=== PATIENT | female | born 1965 | race Two or more races ===

== ENCOUNTER 2024-12-14 22:25 | Emergency (ER) | payer MEDICAID, SELFPAY ==
[2024-12-14 22:27] VITALS: BMI 31.2
[2024-12-14 22:30] VITALS: BP 134/66; PULSE 63; RESP 18; TEMP 36.6; O2SAT 98
--- NOTE | 2024-12-14 22:30 | EKG_ITS ---
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
--- NOTE | 2024-12-14 23:19 | XR_ITS ---
Examination: PA chest single view TECHNIQUE: Upright PA chest single view Standing time: December 14, 2024, 11:30 PM Comparison September 30, 2023 INDICATIONS: Chest pain today. FINDINGS: Normal heart size. Stable position cardiac leads. No interval pneumonia or pulmonary edema. Moderate osteopenia IMPRESSION: No interval pneumonia or pulmonary edema
--- NOTE | 2024-12-14 23:20 | EDRME_ITS ---
Rapid Medical Screening Exam [facility] Arrival date/time: 12/14/24 22:25 59F with history of cardiomyopathy, CHF, CAD s/p pacemaker/stent, hypothyroidism, and HTN presents to ED with several days of CP/epigastric pain, a heaviness, and not feeling well. Chief Complaint: Chest Pain Vital signs: Vital Signs Temperature 97.8 F 12/14/24 22:30 Pulse Rate 63 12/14/24 22:30 Respiratory Rate 18 12/14/24 22:30 Blood Pressure 134/66 H 12/14/24 22:30 Pulse Oximetry (%) 98 12/14/24 22:30 Oxygen Delivery Method Room Air 12/14/24 22:30
[2024-12-14 23:46] LABS: Collection Type, Urine Clean Catch
[2024-12-14 23:49] LABS: Basophils # (Auto) 0.1 Thou/mm3 (0.0-0.2); Basophils % (Auto) 1 % (0-2.5); Eosinophils # (Auto) 0.2 Thou/mm3 (0.0-0.5); Eosinophils % (Auto) 2 % (0-10); Hematocrit 37.6 % (36.0-46.0); Hemoglobin 12.9 g/dL (12.0-16.0); Immature Granulocytes % (Auto) 1 % (0-0); Immature Granulocytes Auto 0.04 Thou/mm3 (0.00-0.00); Lymphocytes # (Auto) 1.6 Thou/mm3 (1.0-4.8); Lymphocytes % (Auto) 21 % (10-50); Mean Corpuscular HGB Conc 34.3 g/dl (31.0-37.0); Mean Corpuscular Hemoglobin 30.8 pg (25.0-35.0); Mean Corpuscular Volume 90 fL (80-100); Monocytes # (Auto) 0.6 Thou/mm3 (0.0-0.8); Monocytes % (Auto) 7 % (0-12); Neutrophils # (Auto) 5.5 Thou/mm3 (1.8-7.7); Neutrophils % (Auto) 69 % (37-80); Nucleated Red Blood Cell % 0 /100 WBC (0); Platelet Count 279 Thou/mm3 (140-440); RDW Standard Deviation 43.9 fL (36.4-46.3); Red Blood Count 4.19 Miln/mm3 (4.00-5.20)
[2024-12-15 00:11] LABS: Alanine Aminotransferase 40 U/L (10-49); Albumin, Serum 4.3 gm/dL (3.4-4.8); Albumin/Globulin Ratio 1.5 (1.2-2.2); Alkaline Phosphatase 161 U/L (46-116); Anion Gap 12 (7-16); Aspartate Amino Transferase 27 U/L (0-34); BUN/Creatinine Ratio 13 Ratio (12-20); Bilirubin,Total 0.5 mg/dL (0.3-1.2); Blood Urea Nitrogen 20 mg/dL (9-23); Calcium 9.1 mg/dL (8.3-10.6); Calcium (Corrected) 9.1 mg/dL (8.5-10.1); Carbon Dioxide 25.4 mMol/L (20.0-31.0); Chloride 105 mMol/L (98-107); Creatinine (Component) 1.6 mg/dL (0.6-1.3); Estimated Creatinine Clearance 32.8 mL/min (>60); Globulin 2.8 gm/dL (2.3-3.5); Glucose 105 mg/dL (74-106); Lipase 31 U/L (12-53); Magnesium 2.1 mg/dL (1.6-2.6); Osmolality,Calculated 285 (275-295); Sodium 142 mMol/L (136-145); Total Protein 7.1 gm/dL (5.7-8.2); Troponin I < 0.020 ng/mL (0.0-0.045); eGFR 36 See Note
[2024-12-15 00:15] LABS: B-Type Natriuretic Peptide 59 pg/mL (0-100)
[2024-12-15 00:16] LABS: Bacteria,Urine 3+; Bilirubin,Urine Negative (Negative); Blood,Urine Negative (Negative); Clarity,Urine Clear (Clear/Hazy); Color,Urine Lt-Yellow (Lt Yel-Yel); Glucose, Urine Negative (Negative); Hyaline Casts,Urine < 1 /hpf (0-1); Ketones,Urine Negative (Negative); Leukocyte Esterase,Urine Positive (Negative); Nitrite,Urine Negative (Negative); Protein,Urine Negative (Neg - Trace); RBC,Urine 2 /hpf (0-3); Squamous Epithelial Cell,Urine 3 /hpf (0-5); WBC,Urine 2 /hpf (0-5)
[2024-12-15 00:51] VITALS: BP 117/78; PULSE 70; RESP 17; TEMP 36.4; O2SAT 96
--- NOTE | 2024-12-15 01:01 | PD.EDCHEST ---
ED Chest Pain RME/HPI General Chief Complaint: Chest Pain Stated Complaint: DISCOMFORT IN MY CHEST, NAUSEA, PACEMAKER/ICD Arrival date/time: 12/14/24 22:25 RME / HPI RME / HPI narrative: 12/14/24 22:25 59F with history of cardiomyopathy, CHF, CAD s/p pacemaker/stent, hypothyroidism, and HTN presents to ED with several days of CP/epigastric pain, a heaviness, and not feeling well. DR. RIZVI MAIN ED EVALUATION: 59 y/o female with Hx of CAD, CHF, ischemic cardiomyopathy, Cardiac Arrhythmia, Hypercholesterolemia, Hypertension and SHx of Coronary Stent presents to ED c/o chest pressure, dry mouth, nausea, dizziness, intermittent diarrhea, abdominal cramping, and chills s/p taking Wegovy. Patient denies fever, cough, or any other associated symptoms or aggravating factors. No modifying factors, no radiation, no migration. Related Data Home Medications ?Medication ?Instructions ?Recorded ?Confirmed aspirin 81 mg tablet,delayed 81 mg PO QDAY 07/14/19 07/12/22 release (Abigail Low Dose Aspirin) fluticasone propionate 50 1 spray intranasal QDAY 07/14/19 07/12/22 mcg/actuation nasal spray,suspension (Flonase Allergy Relief) furosemide 40 mg tablet 40 mg PO QDAY 07/14/19 07/12/22 loratadine 10 mg tablet 10 mg PO QDAY 07/14/19 07/12/22 pantoprazole 20 mg tablet,delayed 20 mg PO QDAY 07/14/19 07/12/22 release potassium chloride 10 mEq 10 meq PO QDAY 07/14/19 07/12/22 tablet,extended release atorvastatin 40 mg tablet 80 mg PO QDAY 12/09/19 07/12/22 ergocalciferol (vitamin D2) 1,250 50,000 unit PO QWEEK 12/09/19 07/12/22 mcg (50,000 unit) capsule (Vitamin D2) nitroglycerin 0.4 mg sublingual 0.4 mg buccal PRN PRN Chest Pain 12/09/19 07/12/22 tablet Allergies Allergy/AdvReac Type Severity Reaction Status Date / Time acetaminophen (From Tylenol) Allergy Severe Gastrointestinal Verified 12/14/24 22:27 Upset Review of Systems Review of Systems Systems Reviewed: All systems reviewed, normal except as documented Narrative Review of Systems: Gen: No fever, positive chills, no weight loss EYES: No discharge, no visual changes, no pain HEENT: No ear pain, no congestion, no sore throat, positive dry mouth PULM: No shortness of breath, no cough, no congestion CV: Chest pressure, no dyspnea on exertion, no palpitations GI: Positive nausea, abdominal cramping, no vomiting, positive diarrhea, no constipation : No frequency, no urgency, no dysuria Musc/skel: No joint pain, no back pain Skin: No rash. Psyc: No hallucinations, no depression Heme/Lymph: No easy bleeding or bruising tendencies Neuro: No weakness, no headache, Positive dizziness Past Medical History Past Medical History CARDIAC: Positive Cardiac Disorders (CAD, CHF, ischemic cardiomyopathy), Cardiac Arrhythmia, Hypercholesterolemia and Hypertension REPRODUCTIVE: Positive Previous Pregnancies ENDOCRINE: Positive Endocrine Disorders Surgical History SURGICAL: Positive Coronary Stent ED Exam Narrative Physical exam: GENERAL APPEARANCE: alert and oriented x 4, well-developed, well-nourished, no acute distress VITALS: All vitals were reviewed and the pulse ox is 98% on room air, which is normal according to my interpretation. HEENT: Normocephalic, atraumatic; pupils equal, round, reactive to light; EOMI; mucous membranes pink, moist; oropharynx clear NECK: Supple LUNGS: CTABL; no wheezes, no rales, no rhonchi HEART: Regular rate, regular rhythm; normal S1, S2; no murmurs ABDOMEN: non distended; normal BS; soft, no tenderness, no guarding, no rebound; no masses, no organomegaly, no hernia BACK: no CVA tenderness EXTREMITIES: atraumatic; no edema NEUROLOGIC: awake; alert and oriented x4; cranial nerves II-XII grossly intact; no focal sensory or motor deficits PSYCHIATRIC: appropriate mood and affect SKIN: warm, dry, normal color; no rashes Course Course Course Narrative: 0058: Zofran ordered. Quality Measures none Orders Category Date Time Status Bedside COVID-19 Antigen Test NOW Care 12/14/24 23:20 Completed Bedside Influenza A&B Antigen Test NOW Care 12/14/24 23:20 Completed EKG (ED ONLY) *Do not use* NOW Care 12/14/24 22:30 Completed EKG (ED Only) Stat Exams 12/14/24 22:30 Draft XR chest 1V portable Stat Exams 12/14/24 23:19 Completed B-Type Natriuretic Peptide Stat Lab 12/14/24 23:29 Completed CBC Stat Lab 12/14/24 23:29 Completed Comprehensive Metabolic Panel Stat Lab 12/14/24 23:29 Completed Lipase Stat Lab 12/14/24 23:29 Completed Magnesium Stat Lab 12/14/24 23:29 Completed Troponin I Stat Lab 12/14/24 23:29 Completed Urinalysis Stat Lab 12/14/24 23:39 Completed Ondansetron Odt [Zofran Odt] Med 12/15/24 00:58 Discontinued 4 mg PO X1 ONE Vital Signs Vital signs: Vital Signs Temperature 97.8 F 12/14/24 22:30 Pulse Rate 63 12/14/24 22:30 Respiratory Rate 18 12/14/24 22:30 Blood Pressure 134/66 H 12/14/24 22:30 Pulse Oximetry (%) 98 12/14/24 22:30 Oxygen Delivery Method Room Air 12/14/24 22:30 Chest Pain MDM Narrative MDM Narrative:: Scribe Attestation: Chyna Ann am scribing for and in the presence of Dr. Rizvi. Provider Notation: Although this document has been carefully reviewed, there may still be some phonetic and other typographical errors. These errors are purely grammatical due to imperfections in the software program and should not be construed in any way to compromise the substance of the patient's medical care during this visit. Patient data External records reviewed:: [facility] previous records (Prior ED records reviewed from 09/30/23. Patient was seen for Weakness (generalized).) Clinical information provided by:: patient Social determinants that could affect healthcare access:: none Patient has the following chronic illnesses:: CAD, CHF, ischemic cardiomyopathy, Cardiac Arrhythmia, Hypercholesterolemia, Hypertension How is presenting disease/condition affected by chronic disease/condition?: exacerbated by Evaluation data The following diagnostics were reviewed and interpreted by me:: lab results, radiology exam(s) and EKG tracing(s) (2303: 55 BMP, PACED.) Lab and/or radiology exams considered but not ordered:: None. Interpretation Summary: RADIOLOGY Chest X-Ray: CXR is ordered for determining etiology of chest pressure. I have personally reviewed the radiology data and agree with the radiologist's interpretation below: Patient: AME BURTON. Record#: [id number] Birthdate: 1965 Age/Sex: 59 / F Location: [facility] Attending Dr: Ordering Physician: Eleuterio Luciano PA-C Date of Service: 12/14/24 Procedure(s): XR chest 1V portable Accession Number(s): [id number] cc: Randal Hayes MD; Eleuterio Luciano PA-C~ Examination: PA chest single view TECHNIQUE: Upright PA chest single view Standing time: December 14, 2024, 11:30 PM Comparison September 30, 2023 INDICATIONS: Chest pain today. FINDINGS: Normal heart size. Stable position cardiac leads. No interval pneumonia or pulmonary edema. Moderate osteopenia IMPRESSION: No interval pneumonia or pulmonary edema Dictated By: Randal Hayes MD Signed By: <Electronically signed by Randal Hayes MD in OV> 12/14/24 1616 Medications / Prescriptions Medications or Prescriptions considered but not ordered:: None. Medication administrations:: Medication Administration History Discontinued Medications Ondansetron HCl (Ondansetron Odt 4 Mg Tabrap) 4 mg PO X1 ONE; Protocol Stop: 12/15/24 00:59 Last Admin: 12/15/24 01:15 Dose: 4 mg Documented By: GLENN See above if any. Consultations Consultation(s) initiated? (list below): No Diagnosis Chest Pain Differential Diagnosis: atypical chest pain, costochondritis and chest pain Most likely diagnosis given after review of the tests above:: Nausea, Chest pressure. Admission Indicated Admission indicated?: not indicated Admission Request Was there a request for admission?: No Disposition Plan Disposition Plan: Discharge Discharge Attestation Discharge Attestation: The patient and all family members were given an opportunity to ask questions and understood the discharge instructions. Discharge instructions specifically effects, indications for sooner follow up or return to the emergency department, and the expected course of current diagnosis. Patient condition: Stable Discharge Plan Plan Patient Disposition: HOME (Self Care) Prescriptions/Referrals Prescriptions/Med Rec: No Action furosemide 40 mg Tablet 40 mg PO QDAY potassium chloride 10 mEq Tablet Extended Release 10 meq PO QDAY aspirin [Abigail Low Dose Aspirin] 81 mg Tablet,Delayed Release (Dr/Ec) 81 mg PO QDAY pantoprazole 20 mg Tablet,Delayed Release (Dr/Ec) 20 mg PO QDAY loratadine 10 mg Tablet 10 mg PO QDAY fluticasone propionate [Flonase Allergy Relief] 50 mcg/actuation [place],Suspension 1 spray INTRANASAL QDAY atorvastatin 40 mg Tablet 80 mg PO QDAY nitroglycerin 0.4 mg Tablet, Sublingual 0.4 mg BUCCAL PRN PRN (Reason: Chest Pain) ergocalciferol (vitamin D2) [Vitamin D2] 1,250 mcg (50,000 unit) Capsule 50,000 unit PO QWEEK Referrals: Robin James MD [Primary Care Provider] - In 1 week Problem List Clinical Impression: Nausea, Chest pressure Patient/Caregiver Discharge Instructions Education Materials: ED Chest Pain, Uncertain Cause Print Language: Yakut Stand Alone Forms: Christina Award Info., Patient Portal Info Letter
[2024-12-15] MEDS: ONDANSETRON ODT 4 MG TABRAP PO (01:15)
[2024-12-15 01:36] VITALS: BP 116/72; PULSE 76; RESP 16; TEMP 36.4; O2SAT 98
== END 2024-12-15 01:37 | disposition home or self-care (01) ==
PROVIDERS: Physician Assistant; Emergency Provider Emergency Medicine; PCP Family Medicine
DX: R07.89 Other chest pain (principal); R11.0 Nausea; R94.31 Abnormal electrocardiogram [ECG] [EKG]; Z95.0 Presence of cardiac pacemaker; I25.5 Ischemic cardiomyopathy; E78.00 Pure hypercholesterolemia, unspecified; Z95.5 Presence of coronary angioplasty implant and graft; I11.0 Hypertensive heart disease with heart failure; I50.9 Heart failure, unspecified; I25.10 Atherosclerotic heart disease of native coronary artery without angina pectoris
CPT/HCPCS: 36415; 71045; 80053; 81001; 83690; 83735; 83880; 84484; 85025; 87400; 87811; 93005; 99283; Q0162

== ENCOUNTER 2025-01-18 08:29 | Emergency (ER) | payer MEDICAID, SELFPAY ==
[2025-01-18 08:31] VITALS: BMI 31.2
[2025-01-18 08:39] VITALS: BP 159/93; PULSE 60; RESP 18; TEMP 36.5; O2SAT 100; BMI 31.2
--- NOTE | 2025-01-18 08:42 | XR_ITS ---
Examination: CT brain head without contrast. 2-D sagittal coronal reconstructions Date and time of exam:January 18, 2025 0900 hours INDICATIONS: Onset dizziness lightheadedness facial numbness hypertension 15 days CTDI: vol (mGy):45.7 DLP: (mGycm):913 Technique: Multiple CT axial sections of the brain have been obtained, 5 mm slice thickness. Contrast has not been administered. 2-D sagittal, coronal reconstructions have been obtained Low dose protocols were performed. One or more of the following dose reduction techniques were used; automated exposure control, adjustment of the mA and/or KV according to patient size, use of iterative reconstruction technique. Findings: No significant ventricular enlargement. Intra-axial or extra-axial hemorrhage density is not seen. No mass effect or midline shift Basal cisterns are not remarkable. Fourth ventricle is midline. Cranial vault intact. Impression: Negative for acute hemorrhage, mass effect or midline shift Advise clinical correlation and follow-up accordingly
--- NOTE | 2025-01-18 08:42 | EKG_ITS ---
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
--- NOTE | 2025-01-18 08:43 | PD.EDRME ---
Rapid Medical Screening Exam E Arrival date/time: 01/18/25 08:29 59-year-old female with a history of hyperlipidemia, hypertension, presents to the emergency room with a chief complaint of right-sided arm numbness, neck tenderness, headache and dizziness, and generalized x 15 minutes. I have greeted and performed a focused initial assessment of this patient. A comprehensive ED assessment and evaluation of the patient, analysis of all test results, and completion of the medical decision making process will be conducted by additional ED providers. Chief Complaint: Neuro Symptoms/Deficit Time Seen by Provider: 01/18/25 08:35 Vital signs: Vital Signs Temperature 97.7 F 01/18/25 08:39 Pulse Rate 60 01/18/25 08:39 Respiratory Rate 18 01/18/25 08:39 Blood Pressure 159/93 H 01/18/25 08:39 Pulse Oximetry (%) 100 01/18/25 08:39 Oxygen Delivery Method Room Air 01/18/25 08:39 Vital signs reviewed by provider: Yes
[2025-01-18] MEDS: MECLIZINE HCL 25 MG TABLET 50 MG PO (09:14)
[2025-01-18 10:55] LABS: Basophils # (Auto) 0.1 Thou/mm3 (0.0-0.2); Basophils % (Auto) 1 % (0-2.5); Eosinophils # (Auto) 0.2 Thou/mm3 (0.0-0.5); Eosinophils % (Auto) 3 % (0-10); Hematocrit 37.6 % (36.0-46.0); Hemoglobin 12.6 g/dL (12.0-16.0); Immature Granulocytes % (Auto) 1 % (0-0); Immature Granulocytes Auto 0.04 Thou/mm3 (0.00-0.00); Lymphocytes # (Auto) 1.2 Thou/mm3 (1.0-4.8); Lymphocytes % (Auto) 16 % (10-50); Mean Corpuscular HGB Conc 33.5 g/dl (31.0-37.0); Mean Corpuscular Hemoglobin 31.7 pg (25.0-35.0); Mean Corpuscular Volume 95 fL (80-100); Monocytes # (Auto) 0.5 Thou/mm3 (0.0-0.8); Monocytes % (Auto) 6 % (0-12); Neutrophils # (Auto) 5.7 Thou/mm3 (1.8-7.7); Neutrophils % (Auto) 74 % (37-80); Nucleated Red Blood Cell % 0 /100 WBC (0); Platelet Count 277 Thou/mm3 (140-440); RDW Standard Deviation 45.1 fL (36.4-46.3); Red Blood Count 3.98 Miln/mm3 (4.00-5.20); White Blood Count 7.6 Thou/mm3 (3.6-11.0)
[2025-01-18 11:10] LABS: Collection Type, Urine Clean Catch
[2025-01-18 11:29] LABS: B-Type Natriuretic Peptide 189 pg/mL (0-100)
[2025-01-18 11:32] LABS: Amphetamine/Methamp Scrn,U Negative (Negative); Barbiturate Screen,Urine Negative (Negative); Benzodiazepines Screen,Urine Negative (Negative); Benzoylecgonine Screen, Ur Negative (Negative); Fentanyl Screen,Urine Negative (Negative); Opiate Screen,Urine Negative (Negative); THC Screen,Urine Negative (Negative)
[2025-01-18 11:37] LABS: Bacteria,Urine 1+; Bilirubin,Urine Negative (Negative); Blood,Urine Negative (Negative); Clarity,Urine Clear (Clear/Hazy); Color,Urine Colorless (Lt Yel-Yel); Glucose, Urine Negative (Negative); Hyaline Casts,Urine < 1 /hpf (0-1); Ketones,Urine Negative (Negative); Leukocyte Esterase,Urine Negative (Negative); Nitrite,Urine Negative (Negative); PH,Urine 6.5 (5.0-7.0); Protein,Urine Negative (Neg - Trace); RBC,Urine 2 /hpf (0-3); Specific Gravity,Urine 1.012 (1.001-1.035); Squamous Epithelial Cell,Urine 1 /hpf (0-5); Urobilinogen,Urine Negative mg/dL (0.0-1.0); WBC,Urine 1 /hpf (0-5)
[2025-01-18 12:02] LABS: Alanine Aminotransferase 41 U/L (10-49); Albumin, Serum 4.2 gm/dL (3.4-4.8); Albumin/Globulin Ratio 1.6 (1.2-2.2); Alkaline Phosphatase 173 U/L (46-116); Anion Gap 11 (7-16); Aspartate Amino Transferase 27 U/L (0-34); BUN/Creatinine Ratio 11 Ratio (12-20); Bilirubin,Total 0.5 mg/dL (0.3-1.2); Blood Urea Nitrogen 18 mg/dL (9-23); Calcium 8.7 mg/dL (8.3-10.6); Calcium (Corrected) 8.7 mg/dL (8.5-10.1); Chloride 108 mMol/L (98-107); Creatinine (Component) 1.6 mg/dL (0.6-1.3); Estimated Creatinine Clearance 32.8 mL/min (>60); Globulin 2.7 gm/dL (2.3-3.5); Glucose 100 mg/dL (74-106); Osmolality,Calculated 285 (275-295); Potassium 4.7 mMol/L (3.4-5.1); Sodium 142 mMol/L (136-145); Total Protein 6.9 gm/dL (5.7-8.2); Troponin I < 0.020 ng/mL (0.0-0.045); eGFR 36 See Note
--- NOTE | 2025-01-18 13:17 | PD.EDNEURO ---
Neuro Symptoms Deficit-RME/HPI General Chief Complaint: Neuro Symptoms/Deficit Stated Complaint: LIGHTHEADED, STUDDERING,FEELS TIRED Time Seen by Provider: 01/18/25 08:35 Arrival date/time: 01/18/25 08:29 59-year-old female with a past medical history of hypertension, cardiomyopathy, CHF and hyperlipidemia presents to the ED with a complaint of dizziness with a feeling of her head floating , as well as right arm numbness that began suddenly today just prior to arrival. She also had issues with her speech stating that she had to think before speaking . She denies any slurred speech, visual or hearing changes. Patient has a strong family history of strokes in both her mother and father so she became very concerned she states that she feels a heavy sensation in her posterior head, neck and shoulders. She denies any chest pain or shortness of breath. She denies any palpitations. Mode of arrival: ambulatory Limitations: no limitations RME / HPI RME / HPI Narrative: 01/18/25 08:29 59-year-old female with a history of hyperlipidemia, hypertension, presents to the emergency room with a chief complaint of right-sided arm numbness, neck tenderness, headache and dizziness, and generalized x 15 minutes. I have greeted and performed a focused initial assessment of this patient. A comprehensive ED assessment and evaluation of the patient, analysis of all test results, and completion of the medical decision making process will be conducted by additional ED providers. Related Data Home Medications ?Medication ?Instructions ?Recorded ?Confirmed aspirin 81 mg tablet,delayed 81 mg PO QDAY 07/14/19 07/12/22 release (Abigail Low Dose Aspirin) fluticasone propionate 50 1 spray intranasal QDAY 07/14/19 07/12/22 mcg/actuation nasal spray,suspension (Flonase Allergy Relief) furosemide 40 mg tablet 40 mg PO QDAY 07/14/19 07/12/22 loratadine 10 mg tablet 10 mg PO QDAY 07/14/19 07/12/22 pantoprazole 20 mg tablet,delayed 20 mg PO QDAY 07/14/19 07/12/22 release potassium chloride 10 mEq 10 meq PO QDAY 07/14/19 07/12/22 tablet,extended release atorvastatin 40 mg tablet 80 mg PO QDAY 12/09/19 07/12/22 ergocalciferol (vitamin D2) 1,250 50,000 unit PO QWEEK 12/09/19 07/12/22 mcg (50,000 unit) capsule (Vitamin D2) nitroglycerin 0.4 mg sublingual 0.4 mg buccal PRN PRN Chest Pain 12/09/19 07/12/22 tablet Allergies Allergy/AdvReac Type Severity Reaction Status Date / Time acetaminophen (From Tylenol) Allergy Severe Gastrointestinal Verified 01/18/25 08:32 Upset Review of Systems Review of Systems Systems Reviewed: All systems reviewed, normal except as documented Past Medical History Past Medical History CARDIAC: Positive Cardiac Disorders, Cardiac Arrhythmia, Hypercholesterolemia and Hypertension; Negative Congestive Heart Failure RESPIRATORY: Negative Chronic Obstructive Pulmonary Disease (COPD) or Asthma GENITOURINARY: Negative Renal Disease REPRODUCTIVE: Positive Previous Pregnancies ENDOCRINE: Positive Endocrine Disorders; Negative Diabetes Mellitus Type 1 or Diabetes Mellitus Type 2 HEMATOLOGIC: Negative Sickle Cell Disease Surgical History SURGICAL: Positive Coronary Stent Social History SMOKING STATUS: Never smoker SUBSTANCE USE: does not use ED Exam Narrative Physical exam: Alert and oriented 59-year-old female, no acute distress. Lungs are clear, cardiovascular regular rate and rhythm without murmurs. Pupils are PERRL, EOMs intact, no nystagmus, cranial nerves II through XII grossly intact, equal gas engineer strength, equal pedal push/pull, normal proximal and distal motor strength, normal sensory and motor to all 4 extremities. TMs and pharynx without erythema or exudate. Nares are pale and boggy. General Limitations: Present no limitations General appearance: Present alert and in no apparent distress Course Course Course Narrative: 59-year-old female with a past medical history of hypertension, cardiomyopathy, CHF and hyperlipidemia presents to the ED with a complaint of dizziness with a feeling of her head floating , as well as right arm numbness that began suddenly today just prior to arrival. She also had issues with her speech stating that she had to think before speaking . She denies any slurred speech, visual or hearing changes. Patient has a strong family history of strokes in both her mother and father so she became very concerned she states that she feels a heavy sensation in her posterior head, neck and shoulders. She denies any chest pain or shortness of breath. She denies any palpitations. Alert and oriented 59-year-old female, no acute distress. Lungs are clear, cardiovascular regular rate and rhythm without murmurs. Pupils are PERRL, EOMs intact, no nystagmus, cranial nerves II through XII grossly intact, equal gas engineer strength, equal pedal push/pull, normal proximal and distal motor strength, normal sensory and motor to all 4 extremities. TMs and pharynx without erythema or exudate. Nares are pale and boggy. Vital signs blood pressure 159/93, pulse 60, respirations 18 nonlabored, temp 97.7, O2 sat 100% on room air. Labs reveal a normal white count, normal H&H and platelets. Chemistry panel reveals a mildly elevated creatinine of 1.6 with an EGFR of 36. Glucose was normal at 100, LFTs are normal with the exception of alk phos at 173. Troponin is normal at less than 0.020, BNP 189. Urinalysis reveals clear colorless urine with a specific gravity of 1.012 with negative ketones, blood, nitrites, leukocyte esterase. 1+ bacteria is noted with normal RBCs, WBCs and 1 squamous epithelial. Urine drug screen is negative. CT Brain Findings: No significant ventricular enlargement. Intra-axial or extra-axial hemorrhage density is not seen. No mass effect or midline shift. Basal cisterns are not remarkable. Fourth ventricle is midline. Cranial vault intact. Impression: Negative for acute hemorrhage, mass effect or midline shift. Advise clinical correlation and follow-up accordingly. Quality Measures none Orders Category Date Time Status EKG (ED ONLY) *Do not use* NOW Care 01/18/25 08:42 Completed Orthostatic Vitals NOW Care 01/18/25 08:[address] head/brain wo con Stat Exams 01/18/25 08:42 Completed EKG (ED Only) Stat Exams 01/18/25 08:42 Draft BNP [B-Type Natriuretic Peptide] Stat Lab 01/18/25 10:31 Completed CBC Stat Lab 01/18/25 10:31 Completed Comprehensive Metabolic Panel Stat Lab 01/18/25 10:31 Completed Drug Screen,Urine Stat Lab 01/18/25 10:58 Completed Troponin I Stat Lab 01/18/25 10:31 Completed Urinalysis Stat Lab 01/18/25 10:58 Completed Urine Culture Stat Lab 01/18/25 10:58 Received Meclizine HCl [Antivert] Med 01/18/25 08:42 Discontinued 50 mg PO X1 ONE Vital Signs Vital signs: Vital Signs Temperature 97.7 F 01/18/25 08:39 Pulse Rate 60 01/18/25 08:39 Respiratory Rate 18 01/18/25 08:39 Blood Pressure 159/93 H 01/18/25 08:39 Pulse Oximetry (%) 100 01/18/25 08:39 Oxygen Delivery Method Room Air 01/18/25 08:39 Neuro Symptoms / Deficit MDM Narrative MDM Narrative:: 59-year-old female with a past medical history of hypertension, cardiomyopathy, CHF and hyperlipidemia presents to the ED with a complaint of dizziness with a feeling of her head floating , as well as right arm numbness that began suddenly today just prior to arrival. She also had issues with her speech stating that she had to think before speaking . She denies any slurred speech, visual or hearing changes. Patient has a strong family history of strokes in both her mother and father so she became very concerned she states that she feels a heavy sensation in her posterior head, neck and shoulders. She denies any chest pain or shortness of breath. She denies any palpitations. Alert and oriented 59-year-old female, no acute distress. Lungs are clear, cardiovascular regular rate and rhythm without murmurs. Pupils are PERRL, EOMs intact, no nystagmus, cranial nerves II through XII grossly intact, equal gas engineer strength, equal pedal push/pull, normal proximal and distal motor strength, normal sensory and motor to all 4 extremities. TMs and pharynx without erythema or exudate. Left TM with serous fluid and bubbles. Nares are pale and boggy. Vital signs blood pressure 159/93, pulse 60, respirations 18 nonlabored, temp 97.7, O2 sat 100% on room air. Labs reveal a normal white count, normal H&H and platelets. Chemistry panel reveals a mildly elevated creatinine of 1.6 with an EGFR of 36 (both the same as results from 12/14/24). Glucose was normal at 100, LFTs are normal with the exception of alk phos at 173. Troponin is normal at less than 0.020, BNP 189 (elevated from 12/14/24). Urinalysis reveals clear colorless urine with a specific gravity of 1.012 with negative ketones, blood, nitrites, leukocyte esterase. 1+ bacteria is noted with normal RBCs, WBCs and 1 squamous epithelial. Urine drug screen is negative. CT Brain Findings: No significant ventricular enlargement. Intra-axial or extra-axial hemorrhage density is not seen. No mass effect or midline shift. Basal cisterns are not remarkable. Fourth ventricle is midline. Cranial vault intact. Impression: Negative for acute hemorrhage, mass effect or midline shift. Advise clinical correlation and follow-up accordingly. She states the Meclizine given to her in triage was helpful. Patient data External records reviewed:: [facility] previous records Clinical information provided by:: patient Social determinants that could affect healthcare access:: none Patient has the following chronic illnesses:: HTN, CHF, Cardiomyopathy. How is presenting disease/condition affected by chronic disease/condition?: uneffected by Evaluation data The following diagnostics were reviewed and interpreted by me:: lab results and radiology exam(s) Lab and/or radiology exams considered but not ordered:: N/A Interpretation Summary: Labs reveal a normal white count, normal H&H and platelets. Chemistry panel reveals a mildly elevated creatinine of 1.6 with an EGFR of 36 (both the same as results from 12/14/24). Glucose was normal at 100, LFTs are normal with the exception of alk phos at 173. Troponin is normal at less than 0.020, BNP 189 (elevated from 12/14/24). Urinalysis reveals clear colorless urine with a specific gravity of 1.012 with negative ketones, blood, nitrites, leukocyte esterase. 1+ bacteria is noted with normal RBCs, WBCs and 1 squamous epithelial. Urine drug screen is negative. CT Brain Findings: No significant ventricular enlargement. Intra-axial or extra-axial hemorrhage density is not seen. No mass effect or midline shift. Basal cisterns are not remarkable. Fourth ventricle is midline. Cranial vault intact. Impression: Negative for acute hemorrhage, mass effect or midline shift. Advise clinical correlation and follow-up accordingly. Medications / Prescriptions Medications or Prescriptions considered but not ordered:: N/A Medication administrations:: Medication Administration History Discontinued Medications Meclizine HCl (Meclizine Hcl 25 Mg Tablet) 50 mg PO X1 ONE Stop: 01/18/25 08:43 Last Admin: 01/18/25 09:14 Dose: 50 mg Documented By: OA Meclizine Consultations Consultation(s) initiated? (list below): No Diagnosis Neuro Differential Diagnosis: subarachnoid hemorrhage, peripheral neuropathy, cerebrovascular accident, multiple sclerosis, transient cerebral ischemia and other (Dizziness) Most likely diagnosis given after review of the tests above:: Dizziness, Peripheral Neuritis Admission Indicated Admission indicated?: not indicated Admission Request Was there a request for admission?: No Disposition Plan Disposition Plan: Discharge Discharge Attestation Discharge Attestation: The patient and all family members were given an opportunity to ask questions and understood the discharge instructions. Discharge instructions specifically effects, indications for sooner follow up or return to the emergency department, and the expected course of current diagnosis. Patient condition: Stable Discharge Plan Plan Patient Disposition: HOME (Self Care) Discharge Disposition comment: Stable and Improved Prescriptions/Referrals Prescriptions/Med Rec: No Action furosemide 40 mg Tablet 40 mg PO QDAY potassium chloride 10 mEq Tablet Extended Release 10 meq PO QDAY aspirin [Abigail Low Dose Aspirin] 81 mg Tablet,Delayed Release (Dr/Ec) 81 mg PO QDAY pantoprazole 20 mg Tablet,Delayed Release (Dr/Ec) 20 mg PO QDAY loratadine 10 mg Tablet 10 mg PO QDAY fluticasone propionate [Flonase Allergy Relief] 50 mcg/actuation [place],Suspension 1 spray INTRANASAL QDAY atorvastatin 40 mg Tablet 80 mg PO QDAY nitroglycerin 0.4 mg Tablet, Sublingual 0.4 mg BUCCAL PRN PRN (Reason: Chest Pain) ergocalciferol (vitamin D2) [Vitamin D2] 1,250 mcg (50,000 unit) Capsule 50,000 unit PO QWEEK Referrals: Robin James MD [Primary Care Provider] - In 1 week Problem List Clinical Impression: Peripheral neuritis, Acute serous otitis media of left ear Patient/Caregiver Discharge Instructions Education Materials: Common Middle Ear Problems, What Is Peripheral Neuropathy Additional Instructions: There is no evidence of a bleed in the brain. If symptoms persist, your Primary care provider may want to refer you to a Neurologist for further evaluation with an MRI of your c-spine and brain. Take the previously prescribed Flonase nasal spray and allergy medication to help with the fluid behind the ear drums. Follow up with your primary care provider regarding the decreased kidney function. This has been present since at least December 14, when you were last seen here in the ED. Print Language: Mexican Stand Alone Forms: Christina Award Info., Patient Portal Info Letter PA/METAL CHECKER Supervising Physician PA/SARITHA Supervising Physician: Dr. Main
[2025-01-18 13:23] VITALS: BP 122/68; BP 123/68; BP 136/80; PULSE 60
[2025-01-18 13:27] VITALS: BP 122/68; PULSE 60; RESP 17; TEMP 36.4; O2SAT 99; BMI 35.1
--- NOTE | 2025-01-18 13:32 | PC.NURSE ---
PT COMING IN FROM ED LOBBY; PER PT, THIS MORNING AROUND 0730, I FELT REALLY DIZZY; I FELET LIKE MY R ARM WAS FEELING FUNNY AND NUMB. I WAS ALSO HAVING A HARD TIME THINKING ABOUT WHAT TO SAY AND I WAS STUTTERING MY WORDS. BUT NOW I FEEL FINE. I FEEL BETTER. UPON INITIAL FOCUSED ASSESSMENT, PT A&OX4, GCS 15. PT ABLE TO STAND WITH STRONG & STEADY GAIT INDEPENDENTLY WITH STRONG & EQUAL METAL TEMPERER STRENGTH BILATERALLY. PT HAS HX OF CHF, CARDIOMYOPATHY, HYPERTHYROIDISM, HIGH BP, HYPERLIPIDEMIA, PACEMAKER, AND AICD.
== END 2025-01-18 14:02 | disposition home or self-care (01) ==
PROVIDERS: Nurse Practitioner Family; Emergency Provider Emergency Medicine; PCP Family Medicine
DX: G62.9 Polyneuropathy, unspecified (principal); H65.02 Acute serous otitis media, left ear; E78.5 Hyperlipidemia, unspecified; I11.0 Hypertensive heart disease with heart failure; I42.9 Cardiomyopathy, unspecified; I50.9 Heart failure, unspecified; Z82.3 Family history of stroke
CPT/HCPCS: 36415; 70450; 80053; 80307; 81001; 83880; 84484; 85025; 87077; 87086; 87186; 93005; 99284; A9270

== ENCOUNTER 2025-03-19 22:44 | Emergency (ER) | payer MEDICAID, SELFPAY ==
[2025-03-19 22:52] VITALS: PULSE 70; RESP 20; O2SAT 98; BMI 31.2
[2025-03-19 22:55] VITALS: BP 155/77; PULSE 60; RESP 20; TEMP 36.4; O2SAT 99
--- NOTE | 2025-03-19 22:59 | PD.EDDIZZY ---
ED Dizzyness RME/HPI General Chief Complaint: Dizziness Stated Complaint: VERTIGO Time Seen by Provider: 03/19/25 23:13 Arrival date/time: 03/19/25 22:44 RME / HPI RME / HPI Narrative: This section includes all my notes and documentations, including HPI, PE, and ED course. Stanislaw Hoyos MD HPI: 59yo female with a history of CAD, CHF, ischemic cardiomyopathy, HTN, HLD, pacemaker BIBA from home here with intermittent dizziness x the last few days. Patient describes it as the room is spinning and feeling drunk . Her symptoms have been occurring at night. She has nausea and vomiting. No fever, cough, or abdominal pain. No other complaints reported. ROS: All negative except as documented in HPI. Physical Exam: General: Alert and oriented. Appearance of malaise noted. Eyes: Conjunctivae and lids clear. PERRL. EOMI. ENT: No nasal congestion. Neck: Supple. No carotid bruit. No JVD. Heart: RRR. Lungs: No respiratory distress. Good air movement. No rhonchi, wheezing, rales. Abdomen: Soft and nontender. Normal bowel sounds. No distension. No rebound or guarding. Back: No CVA tenderness. Skin: Warm and dry. Neuro: Alert and oriented X 3. Cranial nerves II to XII grossly normal. No peripheral motor deficits. I reviewed EMS notes. I reviewed all diagnostic test results. My interpretation of the EKG is paced rhythm with no ST-T changes. My interpretation of the chest x-ray is NAD. My review of the CT head report is NAD. Blood tests unremarkable. UA remarkable for positive leukocyte esterase, 14 WBCs, and 3+ bacteria. COVID/Influenza negative. At this point, diagnoses include vertigo and UTI. Treatment here included IV fluid, Meclizine, Zofran, Scopolamine patch, and Rocephin. Significant improvement noted. Recommended outpatient management. Based on my best medical judgment, made decision no further evaluation or treatment indicated at this time. Patient understands and agrees to the discharge instructions customized and printed, see below. Discharge instructions from Dr. Hoyos: ? After extensive evaluation, there is no life-threatening condition. Such as stroke or brain tumor or heart attack. -- Your severe symptoms are due to vertigo, probably due to severe UTI. This is an inner ear problem that makes you feel like you are drunk or seasick. See attached handout. -- Use scopolamine patch and/or meclizine for your severe symptoms. -- And Zofran for nausea/vomiting. And increase oral fluid to prevent dehydration. Maintain clear urine. If dark or yellow, increase oral fluid. -- And do everything very slowly. Including moving your head. And when you sit up or stand up, wait a minute before you progress. --Take cefdinir for UTI. -- See your private doctor on 03/22/2025 for recheck and further care. Ask to review all test results and official radiology reports, to make sure you receive all necessary follow-ups and monitoring, including final urine culture results from today. If needed, ask to help you get more care not available here in the ER. Such as MRI imaging of your brain, physical therapy, table tilt test, and referrals to see specialists (such as neurologist and ENT specialist). -- Seek immediate medical care with worsening or with any concerns. Stanislaw Hoyos MD Related Data Home Medications ?Medication ?Instructions ?Recorded ?Confirmed aspirin 81 mg tablet,delayed 81 mg PO QDAY 07/14/19 07/12/22 release (Abigail Low Dose Aspirin) fluticasone propionate 50 1 spray intranasal QDAY 07/14/19 07/12/22 mcg/actuation nasal spray,suspension (Flonase Allergy Relief) furosemide 40 mg tablet 40 mg PO QDAY 07/14/19 07/12/22 loratadine 10 mg tablet 10 mg PO QDAY 07/14/19 07/12/22 pantoprazole 20 mg tablet,delayed 20 mg PO QDAY 07/14/19 07/12/22 release potassium chloride 10 mEq 10 meq PO QDAY 07/14/19 07/12/22 tablet,extended release atorvastatin 40 mg tablet 80 mg PO QDAY 12/09/19 07/12/22 ergocalciferol (vitamin D2) 1,250 50,000 unit PO QWEEK 12/09/19 07/12/22 mcg (50,000 unit) capsule (Vitamin D2) nitroglycerin 0.4 mg sublingual 0.4 mg buccal PRN PRN Chest Pain 12/09/19 07/12/22 tablet Previous Rx's ?Medication ?Instructions ?Recorded cefdinir 300 mg capsule 300 mg PO BID #14 caps 03/20/25 meclizine 25 mg tablet 25 mg PO BID PRN dizziness #20 tabs 03/20/25 ondansetron 4 mg disintegrating 4 mg PO TID PRN nausea and 03/20/25 tablet vomiting 30 days #10 tabs scopolamine base 1 mg over 3 days 1 mg topical .q72 hours PRN 03/20/25 transdermal patch (Transderm-Scop) dizziness or vertigo #4 ea Allergies Allergy/AdvReac Type Severity Reaction Status Date / Time acetaminophen (From Tylenol) Allergy Severe Gastrointestinal Verified 01/18/25 08:32 Upset Review of Systems Review of Systems Systems Reviewed: All systems reviewed, normal except as documented Past Medical History Past Medical History CARDIAC: Positive Cardiac Disorders, Cardiac Arrhythmia, Hypercholesterolemia, Cardiomyopathy and Hypertension; Negative Congestive Heart Failure RESPIRATORY: Negative Chronic Obstructive Pulmonary Disease (COPD) or Asthma GENITOURINARY: Negative Renal Disease REPRODUCTIVE: Positive Previous Pregnancies ENDOCRINE: Positive Endocrine Disorders and Hyperthyroidism; Negative Diabetes Mellitus Type 1 or Diabetes Mellitus Type 2 HEMATOLOGIC: Negative Sickle Cell Disease Family History FAMILY HISTORY: Negative Family Cancer Surgical History SURGICAL: Positive Coronary Stent, Pacemaker and Auto Implanted Cardiovert Defib Social History SMOKING STATUS: Never smoker SUBSTANCE USE: does not use ED Exam Narrative Physical exam: As noted in HPI. Course Quality Measures none Orders Category Date Time Status Bedside COVID-19 Antigen Test NOW Care 03/19/25 23:15 Completed Bedside Influenza A&B Antigen Test NOW Care 03/19/25 23:15 Completed EKG (ED ONLY) *Do not use* NOW Care 03/19/25 23:16 Completed Saline [Insert IV] NOW Care 03/19/25 23:15 Completed Straight [In and Out Catheter] X1 Care 03/19/25 23:[address] head/brain wo con Stat Exams 03/19/25 23:16 Completed EKG (ED Only) Stat Exams 03/19/25 23:16 Draft XR chest 1V portable Stat Exams 03/19/25 23:16 Completed Amylase Stat Lab 03/19/25 23:49 Completed BNP [B-Type Natriuretic Peptide] Stat Lab 03/19/25 23:49 Completed Bilirubin,Direct Stat Lab 03/19/25 23:49 Completed CBC Stat Lab 03/19/25 23:49 Completed CMP [Comprehensive Metabolic Panel] Stat Lab 03/19/25 23:49 Completed Free T4 (Free Thyroxine) Stat Lab 03/19/25 23:49 Completed Lipase Stat Lab 03/19/25 23:49 Completed Magnesium Stat Lab 03/19/25 23:49 Completed TSH [Thyroid Stimulating Hormone] Stat Lab 03/19/25 23:49 Completed Troponin I Stat Lab 03/19/25 23:49 Completed UA, C/S IF [Urinalysis, C/S if Indicated] Stat Lab 03/20/25 01:16 Completed Urine Culture Stat Lab 03/20/25 01:16 Received Meclizine HCl [Antivert] Med 03/19/25 23:15 Discontinued 25 mg PO X1 ONE Ondansetron Inj [Zofran Inj] Med 03/19/25 23:15 Discontinued 4 mg IVP X1 ONE Scopolamine [Transderm-Scop Patch] Med 03/19/25 23:15 Discontinued 1 mg TOP X1 ONE Sodium Chloride 0.9% 1000 ml [Ns] 1,000 ml Med 03/19/25 23:15 Discontinued IV 999 mls/hr cefTRIAXone/D5w 1gm IV premix [Rocephin/D5w 1gm IV Med 03/20/25 03:18 Discontinued premix] 1 gm in 50 ml IV X1 Vital Signs Vital signs: Vital Signs Temperature 97.5 F 03/19/25 22:55 Pulse Rate 60 03/19/25 22:55 Respiratory Rate 20 03/19/25 22:55 Blood Pressure 155/77 H 03/19/25 22:55 Pulse Oximetry (%) 99 03/19/25 22:55 Oxygen Delivery Method Room Air 03/19/25 22:55 Dizziness MDM Narrative MDM Narrative:: 59yo female with a history of CAD, CHF, ischemic cardiomyopathy, HTN, HLD, pacemaker BIBA from home here with intermittent dizziness x the last few days. Patient describes it as the room is spinning and feeling drunk . Her symptoms have been occurring at night. She has nausea and vomiting. No fever, cough, or abdominal pain. No other complaints reported. Patient data External records reviewed:: [facility] previous records (Per chart review, patient was seen here on 01/18/25 for acute serous otitis media of left ear.) and EMS form Clinical information provided by:: patient Social determinants that could affect healthcare access:: none Patient has the following chronic illnesses:: CAD, CHF, ischemic cardiomyopathy, HTN, HLD How is presenting disease/condition affected by chronic disease/condition?: exacerbated by Evaluation data The following diagnostics were reviewed and interpreted by me:: lab results, radiology exam(s) and EKG tracing(s) (My interpretation of the EKG: Paced rhythm (60 bpm) with no ST-T changes. Stanislaw Hoyos MD) Lab and/or radiology exams considered but not ordered:: none Interpretation Summary: I reviewed all diagnostic test results. My interpretation of the EKG is paced rhythm with no ST-T changes. My interpretation of the chest x-ray is NAD. My review of the CT head report is NAD. Blood tests unremarkable. UA remarkable for positive leukocyte esterase, 14 WBCs, and 3+ bacteria. COVID/Influenza negative. Medications / Prescriptions Medications or Prescriptions considered but not ordered:: none Medication administrations:: Medication Administration History Discontinued Medications Sodium Chloride (Ns) 1,000 mls @ 999 mls/hr IV .Q1H1M ONE Stop: 03/20/25 00:15 Last Infusion: 03/20/25 00:26 Dose: Infused Documented By: Admin: 03/19/25 23:24 Dose: 999 mls/hr Documented By: ROSE Ceftriaxone Sodium/Dextrose (Rocephin/D5w 1gm Iv Premix) 1 gm in 50 mls @ 100 mls/hr IV X1 ONE Stop: 03/20/25 03:47 Last Infusion: 03/20/25 03:48 Dose: Infused Documented By: Admin: 03/20/25 03:18 Dose: 100 mls/hr Documented By: ROSE Meclizine HCl (Meclizine Hcl 25 Mg Tablet) 25 mg PO X1 ONE Stop: 03/19/25 23:16 Last Admin: 03/19/25 23:27 Dose: 25 mg Documented By: ROSE Ondansetron HCl (Ondansetron Inj 2 Mg/Ml Inj 2 Ml) 4 mg IVP X1 ONE; Protocol Stop: 03/19/25 23:16 Last Admin: 03/19/25 23:26 Dose: 4 mg Documented By: ROSE Scopolamine (Scopolamine 1 Mg Tdsy) 1 mg TOP X1 ONE Stop: 03/19/25 23:16 Last Admin: 03/19/25 23:26 Dose: 1 mg Documented By: ROSE IV fluid, Meclizine, Zofran, Scopolamine patch, and Rocephin. Consultations Consultation(s) initiated? (list below): No Diagnosis Dizziness Differential Diagnosis: benign paroxysmal positional vertigo, orthostatic hypotension and cerebrovascular accident Most likely diagnosis given after review of the tests above:: Vertigo, UTI Admission Indicated Admission indicated?: not indicated Explain why admission is indicated or not indicated:: With significant improvement and no condition needing emergent intervention, there was no indication for admission. Admission Request Was there a request for admission?: No Disposition Plan Disposition Plan: Discharge Discharge Attestation Discharge Attestation: The patient and all family members were given an opportunity to ask questions and understood the discharge instructions. Discharge instructions specifically effects, indications for sooner follow up or return to the emergency department, and the expected course of current diagnosis. Patient condition: Stable Discharge Plan Plan Patient Disposition: HOME (Self Care) Prescriptions/Referrals Prescriptions/Med Rec: New meclizine 25 mg tablet 25 mg PO BID PRN (Reason: dizziness) Qty: 20 0RF scopolamine base [Transderm-Scop] 1 mg over 3 days patch 3 day 1 mg topical .q72 hours PRN (Reason: dizziness or vertigo) Qty: 4 0RF ondansetron 4 mg tablet,disintegrating 4 mg PO TID PRN (Reason: nausea and vomiting) 30 Days Qty: 10 0RF cefdinir 300 mg capsule 300 mg PO BID Qty: 14 0RF No Action furosemide 40 mg Tablet 40 mg PO QDAY potassium chloride 10 mEq Tablet Extended Release 10 meq PO QDAY aspirin [Abigail Low Dose Aspirin] 81 mg Tablet,Delayed Release (Dr/Ec) 81 mg PO QDAY pantoprazole 20 mg Tablet,Delayed Release (Dr/Ec) 20 mg PO QDAY loratadine 10 mg Tablet 10 mg PO QDAY fluticasone propionate [Flonase Allergy Relief] 50 mcg/actuation [place],Suspension 1 spray INTRANASAL QDAY atorvastatin 40 mg Tablet 80 mg PO QDAY nitroglycerin 0.4 mg Tablet, Sublingual 0.4 mg BUCCAL PRN PRN (Reason: Chest Pain) ergocalciferol (vitamin D2) [Vitamin D2] 1,250 mcg (50,000 unit) Capsule 50,000 unit PO QWEEK Referrals: Robin James MD [Primary Care Provider] - In 1 week Problem List Clinical Impression: Vertigo, UTI (urinary tract infection) Patient/Caregiver Discharge Instructions Discharge Activity: activity as tolerated Education Materials: ED CYSTITIS Female Adult, ED Vertigo, Unspecified Additional Instructions: Discharge instructions from Dr. Hoyos: ? After extensive evaluation, there is no life-threatening condition.? Such as stroke or brain tumor or heart attack. -- Your severe symptoms are due to vertigo, probably due to severe UTI. This is an inner ear problem that makes you feel like you are drunk or seasick.? See attached handout. -- Use scopolamine patch and/or meclizine for your severe symptoms. -- And Zofran for nausea/vomiting.? And increase oral fluid to prevent dehydration.? Maintain clear urine.? If dark or yellow, increase oral fluid. -- And do everything very slowly.? Including moving your head.? And when you sit up or stand up, wait a minute before you progress.? --Take cefdinir for UTI. -- See your private doctor on 03/22/2025 for recheck and further care. Ask to review all test results and official radiology reports, to make sure you receive all necessary follow-ups and monitoring, including final urine culture results from today. If needed, ask to help you get more care not available here in the ER.? Such as MRI imaging of your brain, physical therapy, table tilt test, and referrals to see specialists (such as neurologist and ENT specialist). -- Seek immediate medical care with worsening or with any concerns. Print Language: Com[place] Stand Alone Forms: Christina Award Info., Patient Portal Info Letter
--- NOTE | 2025-03-19 23:04 | PC.NURSE ---
PT BIBA FROM HOME FOR WORSENING VERTIGO THAT STARTED 3 DAYS GO. PT STATES THAT THE VERTIGO STARTED 3 DAYS AGO AND HAS NOT STOPPED. PT REPORTS N/V. PT DESCRIBES VERTIGO THE ROOM SPINNING. PT STATES THIS ISNT THE FIRST TIME SHES EXPERIENCED VERTIGO. SHE STATES THAT WHEN SHE GOT COVID WAS THE FIRST TIME SHE GOT VERTIGO
--- NOTE | 2025-03-19 23:16 | XR_ITS ---
Examination: CT brain head without contrast. 2-D sagittal coronal reconstructions Date and time of exam:March 20, 2025, 0131 hours INDICATIONS: Severe vertigo and dizziness today CTDI: vol (mGy):49.9 DLP: (mGycm):940 Technique: Multiple CT axial sections of the brain have been obtained, 5 mm slice thickness. Contrast has not been administered. 2-D sagittal, coronal reconstructions have been obtained Low dose protocols were performed. One or more of the following dose reduction techniques were used; automated exposure control, adjustment of the mA and/or KV according to patient size, use of iterative reconstruction technique. Findings: No significant ventricular enlargement. Intra-axial or extra-axial hemorrhage density is not seen. No mass effect or midline shift Basal cisterns are not remarkable. Fourth ventricle is midline. Cranial vault intact. Impression: Negative for acute hemorrhage, mass effect or midline shift Advise clinical correlation and follow up accordingly.
--- NOTE | 2025-03-19 23:16 | XR_ITS ---
Examination: AP chest single view TECHNIQUE: AP portable upright chest single view Date and time: March 19, 2025, 11:49 PM Comparison December 14, 2024 INDICATIONS: Shortness of breath today. FINDINGS: Mild prominence of ventricle Cardiac leads satisfactory position. No pneumonia or pulmonary edema. Moderate osteopenia IMPRESSION: No pneumonia or pulmonary edema
--- NOTE | 2025-03-19 23:16 | EKG_ITS ---
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
[2025-03-19] MEDS: SODIUM CHLORIDE 0.9% 1000 ML 1,000 ML 999 ML IV (23:24)
[2025-03-19] MEDS: SCOPOLAMINE 1 MG TDSY TOP (23:26)
[2025-03-19] MEDS: ONDANSETRON INJ 2 MG/ML INJ 2 ML 4 MG IVP (23:26)
[2025-03-19] MEDS: MECLIZINE HCL 25 MG TABLET PO (23:27)
[2025-03-20 00:22] LABS: Basophils # (Auto) 0.1 Thou/mm3 (0.0-0.2); Basophils % (Auto) 1 % (0-2.5); Eosinophils # (Auto) 0.1 Thou/mm3 (0.0-0.5); Eosinophils % (Auto) 2 % (0-10); Hematocrit 35.9 % (36.0-46.0); Hemoglobin 11.8 g/dL (12.0-16.0); Immature Granulocytes Auto 0.05 Thou/mm3 (0.00-0.00); Lymphocytes # (Auto) 1.4 Thou/mm3 (1.0-4.8); Lymphocytes % (Auto) 16 % (10-50); Mean Corpuscular HGB Conc 32.9 g/dl (31.0-37.0); Mean Corpuscular Hemoglobin 31.3 pg (25.0-35.0); Mean Corpuscular Volume 95 fL (80-100); Monocytes # (Auto) 0.5 Thou/mm3 (0.0-0.8); Monocytes % (Auto) 6 % (0-12); Neutrophils # (Auto) 6.7 Thou/mm3 (1.8-7.7); Neutrophils % (Auto) 76 % (37-80); Nucleated Red Blood Cell # 0.00 Thou/mm3 (0.00-0.00); Nucleated Red Blood Cell % 0 /100 WBC (0); Platelet Count 257 Thou/mm3 (140-440); RDW Standard Deviation 46.0 fL (36.4-46.3); Red Blood Count 3.77 Miln/mm3 (4.00-5.20); White Blood Count 8.8 Thou/mm3 (3.6-11.0)
[2025-03-20 00:43] LABS: Alanine Aminotransferase 31 U/L (10-49); Albumin, Serum 3.9 gm/dL (3.4-4.8); Albumin/Globulin Ratio 1.7 (1.2-2.2); Alkaline Phosphatase 156 U/L (46-116); Amylase 67 U/L (30-118); Anion Gap 9 (7-16); Aspartate Amino Transferase 18 U/L (0-34); BUN/Creatinine Ratio 14 Ratio (12-20); Bilirubin,Direct 0.1 mg/dL (0.0-0.3); Bilirubin,Total 0.3 mg/dL (0.3-1.2); Blood Urea Nitrogen 23 mg/dL (9-23); Calcium 8.2 mg/dL (8.3-10.6); Calcium (Corrected) 8.3 mg/dL (8.5-10.1); Carbon Dioxide 24.0 mMol/L (20.0-31.0); Chloride 109 mMol/L (98-107); Creatinine (Component) 1.7 mg/dL (0.6-1.3); Estimated Creatinine Clearance 30.9 mL/min (>60); Free T4 (Free Thyroxine) 1.90 ng/dL (0.89-1.76); Globulin 2.3 gm/dL (2.3-3.5); Glucose 115 mg/dL (74-106); Lipase 30 U/L (12-53); Magnesium 1.8 mg/dL (1.6-2.6); Osmolality,Calculated 287 (275-295); Potassium 3.8 mMol/L (3.4-5.1); Sodium 142 mMol/L (136-145); Thyroid Stimulating Hormone 2.85 uIU/mL (0.55-4.78); Total Protein 6.2 gm/dL (5.7-8.2); Troponin I < 0.020 ng/mL (0.0-0.045); eGFR 34 See Note
[2025-03-20 01:06] LABS: B-Type Natriuretic Peptide 155 pg/mL (0-100)
[2025-03-20 02:30] LABS: Collection Type, Urine Clean Catch; RBC,Urine 0 /hpf (0-3)
--- NOTE | 2025-03-20 02:30 | PRELIM_ITS ---
CT scan of the head without intravenous contrast (axial sections with sagittal and coronal reformats) March 20, 2025 at 0131 hours Clinical history: Severe vertigo. Comparison: No prior study is available for comparison. Findings: There is no evidence of intracranial hemorrhage, mass effect or midline shift. There are periventricular white matter hypodensities, compatible with chronic small vessel ischemia. There is mild volume loss. The calvarium is unremarkable. The mastoid air cells and the visualized paranasal sinuses are clear. Impression: No evidence of intracranial hemorrhage, mass effect or midline shift. Chronic small vessel ischemia and volume loss. Suggest clinical correlation and follow up accordingly. Report Electronically Signed By: Shabbir Moody 03/20/2025 2:30:01 AM [EST]
[2025-03-20 02:52] LABS: Bacteria,Urine 3+; Bilirubin,Urine Negative (Negative); Blood,Urine Negative (Negative); Clarity,Urine Turbid (Clear/Hazy); Color,Urine Lt-Yellow (Lt Yel-Yel); Culture Indicated,Urine Contaminated; Glucose, Urine Negative (Negative); Hyaline Casts,Urine 1 /hpf (0-1); Ketones,Urine Negative (Negative); Leukocyte Esterase,Urine Positive (Negative); Nitrite,Urine Negative (Negative); PH,Urine 5.5 (5.0-7.0); Protein,Urine Negative (Neg - Trace); Specific Gravity,Urine 1.020 (1.001-1.035); Squamous Epithelial Cell,Urine 12 /hpf (0-5); Urobilinogen,Urine Negative mg/dL (0.0-1.0); WBC,Urine 14 /hpf (0-5)
[2025-03-20] MEDS: cefTRIAXone/D5w 1gm IV premix 1 GM/50 ML BAG IV (03:18)
[2025-03-20 03:48] VITALS: BP 147/67; PULSE 60; RESP 19; O2SAT 99
== END 2025-03-20 03:49 | disposition home or self-care (01) ==
PROVIDERS: Emergency Provider Emergency Medicine; PCP Family Medicine
DX: N39.0 Urinary tract infection, site not specified (principal); R42 Dizziness and giddiness; R06.02 Shortness of breath; I45.81 Long QT syndrome; Z95.0 Presence of cardiac pacemaker; I25.10 Atherosclerotic heart disease of native coronary artery without angina pectoris; I11.0 Hypertensive heart disease with heart failure; I50.9 Heart failure, unspecified; I25.5 Ischemic cardiomyopathy; E78.00 Pure hypercholesterolemia, unspecified
CPT/HCPCS: 36415; 70450; 71045; 80053; 81001; 82150; 82248; 83690; 83735; 83880; 84439; 84443; 84484; 85025; 87086; 87400; 87811; 93005; 96361; 96365; 96375; 99283; J0696; J2405; J7030; A9270